=== PATIENT | male | born 1995 | race Caucasian/White ===

== ENCOUNTER 2017-07-18 09:21 | Emergency (ER) | payer OTHER ==
[~2017-07-18] VITALS: Ht 162.6 cm; Wt 63.5 kg
[~2017-07-18 09:21] MED LIST: ALBU90OI INH; Flomax0.4 MG PO; Norco 5-325 Ta1 EACH PO; OXYM.05NI; PHENA100 PO; PSEU120ER PO; Percocet 5-3251 EACH PO; SULTRIDS PO; Ultram50 MG PO
== END 2017-07-18 09:51 | disposition home or self-care (01) ==
LOC: ER 09:21
DX: L72.3 Sebaceous cyst (principal); Z87.442 Personal history of urinary calculi
CPT/HCPCS: 99282

== ENCOUNTER 2017-07-29 13:23 | Emergency (ER) | payer OTHER ==
[~2017-07-29] VITALS: Ht 175.3 cm; Wt 65.8 kg
== END 2017-07-29 14:53 | disposition home or self-care (01) ==
LOC: ER 13:23
DX: S61.031A Puncture wound without foreign body of right thumb without damage to nail, initial encounter (principal); R51 Headache; W22.8XXA Striking against or struck by other objects, initial encounter
CPT/HCPCS: 73140; 99283

== ENCOUNTER 2017-08-11 03:44 | Emergency (ER) | payer OTHER ==
[~2017-08-11] VITALS: Ht 162.6 cm; Wt 72.6 kg
[2017-08-11] MEDS ORDERED: Percocet 5-3251 EACH PO (05:45)
== END 2017-08-11 06:00 | disposition home or self-care (01) ==
LOC: ER 03:44
DX: S62.326A Displaced fracture of shaft of fifth metacarpal bone, right hand, initial encounter for closed fracture (principal); I10 Essential (primary) hypertension; Z87.442 Personal history of urinary calculi; W22.8XXA Striking against or struck by other objects, initial encounter; Y93.02 Activity, running
CPT/HCPCS: 26605; 73130; 96372; 99283; J1885

== ENCOUNTER 2019-06-30 14:17 | Emergency (ER) | payer OTHER ==
[~2019-06-30] VITALS: Ht 165.1 cm; Wt 72.6 kg
[2019-06-30] MEDS ORDERED: IBUP800 PO (14:24)
[2019-06-30] MEDS ORDERED: Amoxicillin500 MG PO (14:24)
== END 2019-06-30 14:25 | disposition home or self-care (01) ==
LOC: ER 14:17
DX: H66.91 Otitis media, unspecified, right ear (principal); I10 Essential (primary) hypertension
CPT/HCPCS: 99282

== ENCOUNTER → 2019-10-24 | Outpatient (CLI) | payer SELFPAY ==
[~2019-10-24] MED LIST changes: +Amoxicillin500 MG PO; +IBUP800 PO
[2019-10-26 17:06] LABS: CHLAMYDIA TRACHOMATIS, NAA Negative (Negative); NEISSERIA GONORRHOEAE, NAA Negative (Negative)
== END | disposition home or self-care (01) ==
LOC: LAB 14:45 → LAB SHORT 14:45
PROVIDERS: Nurse Practitioner Family
DX: R31.9 Hematuria, unspecified (principal); R30.0 Dysuria; Z72.51 High risk heterosexual behavior
CPT/HCPCS: 87491; 87591

== ENCOUNTER 2020-03-28 10:46 | Emergency (ER) | payer OTHER ==
[~2020-03-28] VITALS: Ht 165.1 cm; Wt 72.6 kg
== END 2020-03-28 11:20 | disposition home or self-care (01) ==
LOC: ER 10:46
DX: L23.7 Allergic contact dermatitis due to plants, except food (principal); I10 Essential (primary) hypertension; Z87.442 Personal history of urinary calculi
CPT/HCPCS: 96372; 99283-25; J3301

== ENCOUNTER 2020-04-05 06:07 | Emergency (ER) | payer OTHER ==
[~2020-04-05] VITALS: Ht 165.1 cm; Wt 68.0 kg
== END 2020-04-05 07:11 | disposition home or self-care (01) ==
LOC: ER 06:07
DX: D36.7 Benign neoplasm of other specified sites (principal); I10 Essential (primary) hypertension; Z87.442 Personal history of urinary calculi
CPT/HCPCS: 99282

== ENCOUNTER 2020-05-03 20:55 | Emergency (ER) | payer OTHER ==
[~2020-05-03] VITALS: Ht 165.1 cm; Wt 70.3 kg
[2020-05-03] MEDS ORDERED: KEFLEX500 MG PO (21:33)
== END 2020-05-03 21:47 | disposition home or self-care (01) ==
LOC: ER 20:55
DX: L03.113 Cellulitis of right upper limb (principal); I10 Essential (primary) hypertension; Z87.442 Personal history of urinary calculi
CPT/HCPCS: 99283; A9270-GY

== ENCOUNTER 2020-06-23 20:31 | Emergency (ER) | payer OTHER ==
[~2020-06-23] VITALS: Ht 162.6 cm; Wt 70.3 kg
[~2020-06-23 20:31] MED LIST changes: +KEFLEX500 MG PO
[2020-06-23] MEDS ORDERED: Keflex500 MG PO (22:00)
[2020-06-23] MEDS ORDERED: Bactrim Ds Tab1 EACH PO (22:00)
== END 2020-06-23 22:14 | disposition home or self-care (01) ==
LOC: ER 20:31
DX: L03.114 Cellulitis of left upper limb (principal); F19.10 Other psychoactive substance abuse, uncomplicated; Z23 Encounter for immunization
CPT/HCPCS: 90471; 90714; 99282-25; A9270

== ENCOUNTER 2020-08-26 05:49 | Emergency (ER) | payer OTHER ==
[~2020-08-26] VITALS: Ht 172.7 cm; Wt 70.3 kg
[~2020-08-26 05:49] MED LIST changes: +Bactrim Ds Tab1 EACH PO; +Keflex500 MG PO
[2020-08-26] MEDS ORDERED: CEPH500 PO (06:30)
== END 2020-08-26 06:43 | disposition home or self-care (01) ==
LOC: ER 05:49
DX: S61.412A Laceration without foreign body of left hand, initial encounter (principal); I10 Essential (primary) hypertension; L03.114 Cellulitis of left upper limb; Z87.442 Personal history of urinary calculi; W31.2XXA Contact with powered woodworking and forming machines, initial encounter
CPT/HCPCS: 99283

== ENCOUNTER 2020-12-27 20:59 | Emergency (ER) | payer OTHER ==
[~2020-12-27] VITALS: Ht 162.6 cm; Wt 70.3 kg
[~2020-12-27 20:59] MED LIST changes: +CEPH500 PO
== END 2020-12-27 23:15 | disposition left against medical advice (07) ==
LOC: ER 20:59
DX: M79.641 Pain in right hand (principal); Z53.21 Procedure and treatment not carried out due to patient leaving prior to being seen by health care provider
CPT/HCPCS: 73130; 99283-25

== ENCOUNTER 2020-12-29 10:22 | Emergency (ER) | payer OTHER ==
[~2020-12-29] VITALS: Ht 162.6 cm; Wt 70.3 kg
[2020-12-29] MEDS ORDERED: ESCI10 PO (10:41)
== END 2020-12-29 12:24 | disposition home or self-care (01) ==
LOC: ER 10:22
DX: S62.324A Displaced fracture of shaft of fourth metacarpal bone, right hand, initial encounter for closed fracture (principal); I10 Essential (primary) hypertension; Z79.899 Other long term (current) drug therapy; W22.8XXA Striking against or struck by other objects, initial encounter
CPT/HCPCS: 29125; 99282-25

== ENCOUNTER 2021-05-01 15:53 | Emergency (ER) | payer OTHER ==
[~2021-05-01] VITALS: Ht 167.6 cm; Wt 56.7 kg
[~2021-05-01 15:53] MED LIST changes: +ESCI10 PO
[2021-05-01] MEDS ORDERED: SULTRIDS PO (17:11)
[2021-05-01] MEDS ORDERED: CEPH500 PO (17:11)
== END 2021-05-01 17:20 | disposition home or self-care (01) ==
LOC: ER 15:53
DX: I80.8 Phlebitis and thrombophlebitis of other sites (principal); L03.113 Cellulitis of right upper limb; I10 Essential (primary) hypertension
CPT/HCPCS: 76882; 99283-25

== ENCOUNTER 2021-07-26 14:11 | Emergency (ER) | payer OTHER ==
[~2021-07-26] VITALS: Ht 162.6 cm; Wt 72.6 kg
[2021-07-26] MEDS ORDERED: Floxin10 ML LEFTEYE (15:16)
== END 2021-07-26 15:41 | disposition home or self-care (01) ==
LOC: ER 14:11
DX: S05.02XA Injury of conjunctiva and corneal abrasion without foreign body, left eye, initial encounter (principal); I10 Essential (primary) hypertension; Z79.899 Other long term (current) drug therapy; Z79.2 Long term (current) use of antibiotics; X58.XXXA Exposure to other specified factors, initial encounter
CPT/HCPCS: 99283; A9270

== ENCOUNTER 2025-01-22 11:59 | Emergency (ER) | payer OTHER ==
[~2025-01-22] VITALS: Ht 167.6 cm; Wt 71.2 kg
[~2025-01-22 11:59] MED LIST changes: +Floxin10 ML LEFTEYE
[2025-01-22 13:11] LABS: BASOPHILS ABSOLUTE AUTO 0.07 K/mm3 (0.00-0.23); BASOPHILS PERCENT AUTO 1 % (0-2); EOSINOPHILS ABSOLUTE AUTO 0.00 K/mm3 (0.00-0.68); EOSINOPHILS PERCENT AUTO 0 % (0-6); Hematocrit 45.3 % (37.0-53.0); Hemoglobin 15.0 g/dL (13.5-17.5); IMMATURE GRAN ABSOLUTE AUTO 0.02 K/mm3 (0.00-0.10); IMMATURE GRAN PERCENT AUTO 0 % (0-1); LYMPHOCYTES ABSOLUTE AUTO 2.00 K/mm3 (0.84-5.20); LYMPHOCYTES PERCENT AUTO 27 % (21-46); MONOCYTES ABSOLUTE AUTO 0.61 K/mm3 (0.16-1.47); MONOCYTES PERCENT AUTO 8 % (4-13); Mean Corpuscular HGB Conc 33.1 g/dL (31.5-36.5); Mean Corpuscular Volume 82 fL (80-100); NEUTROPHILS ABSOLUTE AUTO 4.74 K/mm3 (1.96-9.15); NEUTROPHILS PERCENT AUTO 64 % (41-73); NRBC ABSOLUTE 0.00 K/mm3 (0.00-0.02); NRBC Auto 0.0 /100 WBC (0.0-0.2); Platelet Count 237 K/mm3 (150-400); RDW Coefficient Variation 14.5 % (11.7-14.2); RDW Standard Deviation 42.5 fL (35.1-46.3)
[2025-01-22 15:03] LABS: Alanine Aminotransfer (ALT/SGP 23.0 U/L (12-78); Albumin, Blood 3.8 g/dL (3.4-5.0); Albumin/Globulin Ratio 1.2 (0.8-1.8); Anion Gap 7.0 mmol/L (3-11); Aspartate Aminotrans (AST/SGOT 13.0 U/L (12-37); Bilirubin, Total 0.6 mg/dL (0.1-1.0); Blood Urea Nitrogen 13.0 mg/dL (8-24); CO2, Blood 27.0 mmol/L (21-32); Calcium, Blood 8.8 mg/dL (8.5-10.1); Chloride, Blood 111.0 mmol/L (98-108); Creatinine, Blood 0.93 mg/dL (0.60-1.20); Globulin, Blood 3.3 g/dL (2.2-4.0); Glucose, Blood 93.0 mg/dL (70-99); Potassium, Blood 3.2 mmol/L (3.5-5.5); Sodium, Blood 142.0 mmol/L (136-145); Total Protein, Blood 7.1 g/dL (6.4-8.2)
[2025-01-22 17:58] VITALS: BP 128/80
== END 2025-01-22 17:59 | disposition home or self-care (01) ==
LOC: ER 11:59
PROVIDERS: Emergency Medicine
DX: H49.22 Sixth [abducent] nerve palsy, left eye (principal); F15.129 Other stimulant abuse with intoxication, unspecified; Z79.899 Other long term (current) drug therapy; Z79.2 Long term (current) use of antibiotics; Z87.442 Personal history of urinary calculi; I10 Essential (primary) hypertension
CPT/HCPCS: 36415; 70450; 70551; 80053; 85025; 93005; 93010; 99285-25; A9270